=== PATIENT | male | born 1965 | race American Indian/Alaskan Native ===

== ENCOUNTER 2020-05-11 06:32 | Emergency (ER) | payer OTHER ==
--- NOTE | 2020-05-11 07:23 | EDM.PDOC ---
ED [facility] GENERAL MEDICAL PROBLEM - General Chief Complaint: Genitourinary Problem Stated Complaint: DISCHARGE IN URINE Time Seen by Provider: 05/11/20 07:13 Source of Information: Reports: Patient History Limitations: Reports: No Limitations - History of Present Illness INITIAL COMMENTS - FREE TEXT/NARRATIVE: 54-year-old male presents with dysuria and greenish penile discharge for 1 week. He was sexually active with another person that has STDs. Patient denies fever, chills, headache, ocular pain, chest pain, shortness of breath, abdominal pain, focal numbness or weakness. ROS: A 10-point review of systems, other than pertinent positives and negatives as stated per HPI, is otherwise negative Past medical history: No additional pertinent history Past Surgical history: No additional pertinent history Social history: No additional pertinent history Family history: No additional pertinent history PHYSICAL EXAM General: AOx4, GCS = 15, No distress HEENT: dry mucous membrane Neck: supple, no meningismus, no Kernig or Brudzinski Cardiac: S1S2 RRR Respiratory: CTAB, no crackles or rales, no wheezing Abdomen: Soft, nontender, no rebound or guarding, nondistended, no pulsatile mass. : Deferred Back: nontender Musculoskeletal: NVI distally, no deformity Neuro: No focal deficits, CN 2 - 12 WNL. - Related Data Allergies Allergy/AdvReac Type Severity Reaction Status Date / Time No Known Allergies Allergy Verified 05/11/20 06:52 Home Meds: Home Meds Doxycycline Monohydrate 100 mg PO BID 10 Days #20 capsule 05/11/20 [Rx] Past Medical History - Past Health History Medical/Surgical History: Denies Medical/Surgical History - Infectious Disease History Infectious Disease History: Reports: Novel Coronavirus Social & Family History - Family History Family Medical History: No Pertinent Family History - Tobacco Use Tobacco Use Status *Q: Never Tobacco User - Caffeine Use Caffeine Use: Reports: None - Recreational Drug Use Recreational Drug Use: Yes Recreational Drug Type: Reports: Marijuana/Hashish Recreational Drug Use Frequency: Weekly ED ROS GENERAL - Review of Systems Review Of Systems: See Below (see dictation) ED EXAM, GENERAL - Physical Exam Exam: See Below (see dictation) Course - Vital Signs Last Recorded V/S: Last Vital Signs Temp 96.7 F L 05/11/20 06:52 Pulse 60 05/11/20 06:52 Resp 18 05/11/20 06:52 BP 145/91 H 05/11/20 06:52 Pulse Ox 94 L 05/11/20 06:52 - Orders/Labs/Meds Orders: Active Orders 24 hr Category Date Time Status CHLAMYDIA AND GONORRHEA BY TMA Stat Lab 05/11/20 07:14 Ordered URINALYSIS W/MICROSCOPIC [UA W/MICROSCOPIC] [URIN] Stat Lab 05/11/20 07:14 Ordered - Re-Assessments/Exams Free Text/Narrative Re-Assessment/Exam: 05/11/20 07:23 After IM Rocephin 500 mg in the ER, he is currently stable for discharge. I performed a repeat exam and did not appreciate new abnormal findings. Patient exhibits normal vital signs and has a normal gait on road test. I advised the patient to return to the ER for reevaluation if symptoms worsened, including fever, worsening pain, or any other worrisome symptoms. I instructed the patient to follow up with their PCP within 2-3 days. MEDICAL DECISION MAKING: I reviewed the patients past medical records, lab and radiographic findings. I discussed the case with the patient. My differential diagnosis included: Gonorrhea, chlamydia, urethritis, UTI Departure - Departure Time of Disposition: 07:23 Disposition: Home, Self-Care 01 Condition: Good Clinical Impression: Urethritis - Discharge Information *PRESCRIPTION DRUG MONITORING PROGRAM REVIEWED*: Not Applicable *COPY OF PRESCRIPTION DRUG MONITORING REPORT IN PATIENT MARLEEN: Not Applicable Prescriptions: Doxycycline Monohydrate 100 mg PO BID 10 Days #20 capsule Instructions: Sexually Transmitted Disease, [id number] Referrals: Shelby Gutierrez MD [Primary Care Provider] - 1 Week Additional Instructions: The need for follow-up, as well as the timing and circumstances, are variable depending upon the specifics of your emergency department visit. If you don't have a primary care physician on staff, we will provide you with a referral. We always advise you to contact your personal physician following an emergency department visit to inform them of the circumstance of the visit and for follow-up with them and/or the need for any referrals to a consulting spe cialist. The emergency department will also refer you to a specialist when appropriate. This referral assures that you have the opportunity for follow-up care with a specialist. All of these measure are taken in an effort to provide you with optimal care, which includes your follow-up. Under all circumstances we always encourage you to contact your private physician who remains a resource for coordinating your care. When calling for follow-up care, please make the office aware that this follow-up is from your recent emergency room visit. If for any reason you are refused follow-up, please contact the [facility] Emergency Department at and asked to speak to the emergency department charge nurse. If you do not have a primary care doctor, please follow up with the clinics below within 3-5 days. [facility] - Primary Care [address] [place] [address] [id number] [address] [id number] Sepsis Event Note (ED) - Evaluation Sepsis Screening Result: No Definite Risk - Focused Exam Vital Signs: Vital Signs Temp Pulse Resp BP Pulse Ox 05/11/20 06:52 96.7 F L 60 18 145/91 H 94 L - My Orders Last 24 Hours: My Active Orders 05/11/20 07:14 CHLAMYDIA AND GONORRHEA BY TMA Stat URINALYSIS W/MICROSCOPIC [UA W/MICROSCOPIC] [URIN] Stat - Assessment/Plan Last 24 Hours: My Active Orders 05/11/20 07:14 CHLAMYDIA AND GONORRHEA BY TMA Stat URINALYSIS W/MICROSCOPIC [UA W/MICROSCOPIC] [URIN] Stat
[2020-05-11] MEDS ORDERED: cefTRIAXone 500 MG in Lidocaine 1% 1 ML IM ONE (07:24)
[2020-05-13 11:06] LABS: C.TRACHOMATIS BY TMA Negative (Negative); N.GONORRHOEAE BY TMA Positive (Negative)
== END 2020-05-11 07:55 | disposition home or self-care (01) ==
LOC: MW.ED 06:32
DX: N34.2 Other urethritis (principal)
CPT/HCPCS: 81001; 87491; 87591; 96372; 99283; J0696; J2001; 99282

== ENCOUNTER 2021-09-01 06:36 | Day surgery (SDC) | payer MEDICAID, OTHER ==
[~2021-09-01 06:36] MED LIST: Albuterol 0.083% 2.5 MG/3 ML Neb Soln NEB PRN; HYDROmorphone 1 MG/ML Syringe IVPUSH PRN; Lactated Ringers 1,000 ML IV SCH; Metoclopramide 10 MG/2 ML SDV IVPUSH PRN; Morphine 2 MG/ML SYRINGE IVPUSH PRN; Naloxone 0.4 MG/ML SDV IVPUSH PRN; Ondansetron 4 MG/2 ML SDV IVPUSH PRN; ceFAZolin 2 GM in Premix Bag 1 BAG IV SCH; fentaNYL 100 MCG/2 ML SDV IVPUSH PRN
[2021-09-01] MEDS ORDERED: Heparin Sodium 100 Units/ML 3 ML Syringe ONE ×2 (07:27→07:36)
[2021-09-01] MEDS ORDERED: Lidocaine 1% 20 ML MDV ONE (07:27)
[2021-09-01] MEDS ORDERED: Bupivacaine 0.5% 10 ML SDV ONE (07:27)
[2021-09-01] MEDS ORDERED: Iopamidol 408 MG/ML 20 ML SDV ONE (07:28)
[2021-09-01] MEDS ORDERED: Propofol 200 MG/20 ML SDV ONE ×2 (07:30→09:22)
[2021-09-01] MEDS ORDERED: fentaNYL 250 MCG/5 ML SDV ONE (07:30)
[2021-09-01] MEDS ORDERED: Lidocaine 1% 5 ML VIAL ONE (07:36)
[2021-09-01] MEDS ORDERED: Octyl 2-Cyanoacrylate 1 Tube ONE (07:37)
== END 2021-09-01 11:59 | disposition home or self-care (01) ==
LOC: MW.SDS 06:36
PROVIDERS: ATTEND Surgery
DX: C18.9 Malignant neoplasm of colon, unspecified (principal); I10 Essential (primary) hypertension
CPT/HCPCS: 36561; 71045; 76000; A9270; C1788; J1642; J2704; J3010; J3490; J7120; 00532; Q9966

== ENCOUNTER 2022-12-24 12:40 | Emergency (ER) | payer MEDICAID, OTHER ==
[2022-12-24] MEDS ORDERED: Sodium Chloride 0.9% 1,000 ML IV ONE (13:02)
[2022-12-24] MEDS ORDERED: Ondansetron 4 MG/2 ML SDV IVPUSH ONE (13:04)
[2022-12-24] MEDS ORDERED: Diphtheria,Pertussis(Acell),Tetanus Vaccine 0.5 ML Syringe IM ONE (13:13)
[2022-12-24] MEDS ORDERED: Bacitracin Oint 1 GM U/D Packet TOP ONE (13:15)
[2022-12-24 13:23] LABS: BASOPHILS PERCENT AUTO 0.1 % (0.0-1.5); EOSINOPHILS PERCENT AUTO 0.1 % (0.0-7.0); HEMATOCRIT 33.7 % (38.0-50.0); HEMOGLOBIN 11.2 g/dL (13.0-17.0); LYMPHOCYTES ABSOLUTE AUTO 0.9 K/uL (0.6-2.4); LYMPHOCYTES PERCENT AUTO 5.6 % (16.0-40.0); MEAN CORPUSCULAR HEMOGLOBIN 35.2 pg (27.0-32.0); MEAN CORPUSCULAR HGB CONC 33.2 g/dL (31.0-37.0); MONOCYTES ABSOLUTE AUTO 1.6 K/uL (0.0-0.8); MONOCYTES PERCENT AUTO 9.8 % (0.0-15.0); NEUTROPHILS ABSOLUTE AUTO 13.6 K/uL (1.4-5.7); NEUTROPHILS PERCENT AUTO 84.4 % (48.0-80.0); NRBC ABSOLUTE 0 K/uL; PLATELET COUNT,PLT 200 K/uL (150-400); RED BLOOD CELL COUNT 3.18 M/uL (4.50-5.90); WHITE BLOOD CELL COUNT,WBC 16.09 K/uL (4.0-11.0)
[2022-12-24 13:43] LABS: A/G RATIO 0.8 (0.9-1.6); ALBUMIN 2.9 g/dL (3.4-5.0); BILIRUBIN TOTAL 1.7 mg/dL (0.2-1.0); CALCIUM 8.4 mg/dL (8.5-10.1); CARBON DIOXIDE,CO2 22.5 mmol/L (21.0-32.0); CREATININE 0.9 mg/dL (0.8-1.3); EST CRCL DRUG DOSING (CG) 101.11 mL/min; POTASSIUM,K 3.4 mmol/L (3.5-5.1); PROTEIN TOTAL,TP 6.7 g/dL (6.4-8.2)
[2022-12-24 15:33] LABS: CORONAVIRUS COVID-19 NAA NEGATIVE (NEGATIVE); INFLUENZA A NAA NEGATIVE (NEGATIVE); INFLUENZA B NAA NEGATIVE (NEGATIVE)
== END 2022-12-24 15:45 | disposition home or self-care (01) ==
LOC: MW.ED 12:40
DX: J18.9 Pneumonia, unspecified organism (principal); R11.0 Nausea
CPT/HCPCS: 0240U; 36415; 71045; 80053; 83605; 83690; 85025; 87040; 90471; 90715; 93005; 96361; 96374; 99284; J1642; J2405; J7030; 93010

== ENCOUNTER 2022-12-26 09:10 | Emergency (ER) | payer MEDICAID, OTHER ==
[2022-12-26] MEDS ORDERED: Morphine 4 MG/ML Syringe IVPUSH ONE (09:18)
[2022-12-26 09:32] LABS: BASOPHILS PERCENT AUTO 0.1 % (0.0-1.5); EOSINOPHILS ABSOLUTE AUTO 0.1 K/uL (0.0-0.7); EOSINOPHILS PERCENT AUTO 0.3 % (0.0-7.0); HEMATOCRIT 34.3 % (38.0-50.0); HEMOGLOBIN 11.6 g/dL (13.0-17.0); LYMPHOCYTES ABSOLUTE AUTO 1.1 K/uL (0.6-2.4); LYMPHOCYTES PERCENT AUTO 7.5 % (16.0-40.0); MEAN CORPUSCULAR HEMOGLOBIN 35.7 pg (27.0-32.0); MEAN CORPUSCULAR HGB CONC 33.8 g/dL (31.0-37.0); MEAN CORPUSCULAR VOLUME 105.5 fL (80.0-98.0); MONOCYTES ABSOLUTE AUTO 1.8 K/uL (0.0-0.8); MONOCYTES PERCENT AUTO 12.5 % (0.0-15.0); NEUTROPHILS ABSOLUTE AUTO 11.7 K/uL (1.4-5.7); NEUTROPHILS PERCENT AUTO 79.6 % (48.0-80.0); NRBC ABSOLUTE 0 K/uL; PLATELET COUNT,PLT 235 K/uL (150-400); RED BLOOD CELL COUNT 3.25 M/uL (4.50-5.90); WHITE BLOOD CELL COUNT,WBC 14.75 K/uL (4.0-11.0)
[2022-12-26 09:57] LABS: INR 1.66 (0.86-1.11)
[2022-12-26 10:13] LABS: A/G RATIO 0.7 (0.9-1.6); ALANINE AMINOTRANSFERASE,ALT 16 IU/L (14-63); ALBUMIN 2.7 g/dL (3.4-5.0); ALKALINE PHOSPHATASE 83 U/L (46-116); ASPARTATE AMNIOTRANSFERASE,AST 18 IU/L (15-37); BILIRUBIN TOTAL 1.4 mg/dL (0.2-1.0); BLOOD UREA NITROGEN,BUN 10 mg/dL (7.0-18.0); CALCIUM 8.4 mg/dL (8.5-10.1); CARBON DIOXIDE,CO2 22.3 mmol/L (21.0-32.0); CHLORIDE,CL 101 mmol/L (98-107); CREATININE 0.8 mg/dL (0.8-1.3); EST CRCL DRUG DOSING (CG) 112.36 mL/min; ESTIMATED GFR 102 mL/min (>60); ETHANOL BLOOD MEDICAL < 3.0 mg/dL; GLUCOSE RANDOM 116 mg/dL (74-106); LIPASE 16 U/L (16-77); MAGNESIUM 1.6 mg/dL (1.8-2.4); POTASSIUM,K 3.3 mmol/L (3.5-5.1); PROTEIN TOTAL,TP 6.4 g/dL (6.4-8.2); SODIUM,NA 136 mmol/L (136-148)
[2022-12-26] MEDS ORDERED: Magnesium Sulfate/Water 2 GM in Premix Bag 1 BAG IV ONE (12:20)
[2022-12-26] MEDS ORDERED: Potassium Chloride 20 MEQ Tab.ER PO ONE (12:21)
[2022-12-26] MEDS ORDERED: Iopamidol 755 MG/ML 500 ML Multipack Bottle IVPUSH STA (13:01)
[2022-12-26] MEDS ORDERED: Heparin Sodium 100 Units/ML 3 ML Syringe ONE (15:54)
[2022-12-26] MEDS ORDERED: Heparin Sodium 100 Units/ML 3 ML Syringe FLUSH PRN (16:01)
== END 2022-12-26 16:05 | disposition home or self-care (01) ==
LOC: MW.ED 09:10
DX: J18.9 Pneumonia, unspecified organism (principal); Z86.16 Personal history of COVID-19
CPT/HCPCS: 36415; 71045; 71275; 80053; 80307; 83690; 83735; 83880; 84484; 85025; 85610; 86850; 86900; 86901; 93005; 96365; 96366; 96375; 99285; A9270; J1642; J2270; J3475; Q9967; 93010; 99284

== ENCOUNTER 2024-09-04 09:00 | Emergency (ER) | payer MEDICAID ==
[2024-09-04] MEDS: Sodium Chloride 0.9% 1,000 ML IV STA (09:11)
[2024-09-04] MEDS: Sodium Chloride 0.9% 2.5 ML Syringe FLUSH PRN (09:14)
[2024-09-04] MEDS: Sodium Chloride 0.9% 10 ML Syringe FLUSH PRN (09:14)
[2024-09-04 09:24] LABS: BASOPHILS ABSOLUTE AUTO 0.02 K/uL (0.00-0.20); BASOPHILS PERCENT AUTO 0.2 % (0.0-1.0); EOSINOPHILS ABSOLUTE AUTO 0.02 K/uL (0.00-0.45); EOSINOPHILS PERCENT AUTO 0.2 % (0.0-6.0); HEMATOCRIT 42.7 % (42.0-52.0); HEMOGLOBIN 14.2 g/dL (14.0-18.0); IMMATURE GRAN ABSOLUTE AUTO 0.07 K/uL (0.00-0.05); IMMATURE GRAN PERCENT AUTO 0.6 % (0.0-0.4); LYMPHOCYTES ABSOLUTE AUTO 0.28 K/uL (1.00-4.80); LYMPHOCYTES PERCENT AUTO 2.3 % (24.0-44.0); MEAN CORPUSCULAR HEMOGLOBIN 30.6 pg (28.0-32.0); MEAN CORPUSCULAR HGB CONC 33.3 g/dL (32.0-36.0); MEAN PLATELET VOLUME 9.5 fL (9.4-12.4); MONOCYTES ABSOLUTE AUTO 0.63 K/uL (0.00-0.80); MONOCYTES PERCENT AUTO 5.2 % (0.0-8.0); NEUTROPHILS ABSOLUTE AUTO 11.07 K/uL (1.80-7.70); NEUTROPHILS PERCENT AUTO 91.5 % (41.0-71.0); PLATELET COUNT,PLT 146 K/uL (150-400); RED BLOOD CELL COUNT 4.64 M/uL (4.52-5.90); WHITE BLOOD CELL COUNT,WBC 12.09 K/uL (3.9-11.3)
[2024-09-04] MEDS: Ondansetron 4 MG/2 ML SDV IVPUSH ONE (09:27)
[2024-09-04 09:40] LABS: A/G RATIO 0.9 (0.9-1.6); ALBUMIN 3.8 g/dL (3.4-5.0); BILIRUBIN TOTAL 2.3 mg/dL (0.2-1.0); CALCIUM 9.7 mg/dL (8.5-10.1); CARBON DIOXIDE,CO2 22.6 mmol/L (21.0-32.0); CREATININE 1.3 mg/dL (0.8-1.3); EST CRCL DRUG DOSING (CG) 62.39 mL/min; PROTEIN TOTAL,TP 8.2 g/dL (6.4-8.2)
[2024-09-04 10:21] LABS: CREATINE KINASE,CK 119 U/L (26-308); ETHANOL BLOOD MEDICAL <3 mg/dL; LIPASE 22 U/L (16-77); PRO B-TYPE NATRIUR PEPT,BNPPRO 73 pg/mL (0-125)
[2024-09-04] MEDS: Iopamidol 755 MG/ML 500 ML Multipack Bottle IVPUSH STA (10:25)
[2024-09-04 10:44] LABS: INR 1.09 (0.86-1.11)
[2024-09-04 10:48] LABS: PH,VENOUS 7.4 (7.32-7.43)
[2024-09-04 11:32] LABS: APPEARANCE,URINE CLEAR; BILIRUBIN,URINE NEGATIVE (NEGATIVE); COLOR,URINE YELLOW; GLUCOSE,URINE NEGATIVE (NEGATIVE); KETONES,URINE NEGATIVE (NEGATIVE); LEUKOCYTE ESTERASE,URINE NEGATIVE (NEGATIVE); NITRITE,URINE NEGATIVE (NEGATIVE); OCCULT BLOOD,URINE LARGE (NEGATIVE); PH,URINE 6.5 (5.0-8.0); PROTEIN,URINE 100 mg/dL (NEGATIVE); UROBILINOGEN,URINE 0.2 EU/dL (<2.0)
[2024-09-04 12:48] LABS: BACTERIA,URINE RARE (NEGATIVE); EPITHELIAL CELLS,URINE RARE (NONE-FEW); WBC,URINE 0-3 (0-5/HPF)
== END 2024-09-04 11:50 | disposition home or self-care (01) ==
LOC: MW.ED 09:00
DX: T67.9XXA Effect of heat and light, unspecified, initial encounter (principal); R11.2 Nausea with vomiting, unspecified; R53.1 Weakness; R42 Dizziness and giddiness; I49.3 Ventricular premature depolarization; N28.1 Cyst of kidney, acquired; Z85.118 Personal history of other malignant neoplasm of bronchus and lung; Z85.9 Personal history of malignant neoplasm, unspecified
CPT/HCPCS: 36415; 71275; 74177; 80053; 80307; 81001; 82550; 82803; 83605; 83690; 83880; 84484; 85025; 85610; 93005; 96361; 96374; 99284; J2405; J7030; Q9967; 93010; 99285

== ENCOUNTER 2024-09-07 12:10 | Emergency (ER) | payer MEDICAID ==
[2024-09-07] MEDS: Ondansetron 4 MG/2 ML SDV IVPUSH ONE (12:24)
[2024-09-07] MEDS: Metoprolol Tartrate 5 MG/5 ML SDV IVPUSH ONE ×3 (12:24→13:37)
[2024-09-07] MEDS: Sodium Chloride 0.9% 1,000 ML IV ONE (12:25)
[2024-09-07 12:27] LABS: BASOPHILS ABSOLUTE AUTO 0.02 K/uL (0.00-0.20); BASOPHILS PERCENT AUTO 0.2 % (0.0-1.0); EOSINOPHILS ABSOLUTE AUTO 0.03 K/uL (0.00-0.45); EOSINOPHILS PERCENT AUTO 0.2 % (0.0-6.0); HEMATOCRIT 36.8 % (42.0-52.0); HEMOGLOBIN 12.9 g/dL (14.0-18.0); IMMATURE GRAN ABSOLUTE AUTO 0.08 K/uL (0.00-0.05); IMMATURE GRAN PERCENT AUTO 0.6 % (0.0-0.4); LYMPHOCYTES ABSOLUTE AUTO 0.26 K/uL (1.00-4.80); MEAN CORPUSCULAR HGB CONC 35.1 g/dL (32.0-36.0); MEAN CORPUSCULAR VOLUME 88.5 fL (83.0-99.0); MEAN PLATELET VOLUME 9.3 fL (9.4-12.4); MONOCYTES ABSOLUTE AUTO 0.73 K/uL (0.00-0.80); MONOCYTES PERCENT AUTO 5.6 % (0.0-8.0); NEUTROPHILS ABSOLUTE AUTO 11.88 K/uL (1.80-7.70); NEUTROPHILS PERCENT AUTO 91.4 % (41.0-71.0); PLATELET COUNT,PLT 180 K/uL (150-400); RED BLOOD CELL COUNT 4.16 M/uL (4.52-5.90)
[2024-09-07 12:47] LABS: INR 1.01 (0.86-1.11)
[2024-09-07] MEDS: Metoprolol Succinate 25 MG Tab.ER PO ONE (12:47)
[2024-09-07 13:07] LABS: A/G RATIO 0.7 (0.9-1.6); ALANINE AMINOTRANSFERASE,ALT 97 IU/L (14-63); ALBUMIN 2.8 g/dL (3.4-5.0); ALKALINE PHOSPHATASE 109 U/L (46-116); ASPARTATE AMNIOTRANSFERASE,AST 60 IU/L (15-37); BILIRUBIN TOTAL 1.4 mg/dL (0.2-1.0); BLOOD UREA NITROGEN,BUN 24 mg/dL (7.0-18.0); CALCIUM 8.8 mg/dL (8.5-10.1); CHLORIDE,CL 99 mmol/L (98-107); CREATININE 1.2 mg/dL (0.8-1.3); EST CRCL DRUG DOSING (CG) 69.72 mL/min; ETHANOL BLOOD MEDICAL <3 mg/dL; GLUCOSE RANDOM 119 mg/dL (74-106); LIPASE 20 U/L (16-77); MAGNESIUM 1.6 mg/dL (1.8-2.4); POTASSIUM,K 3.4 mmol/L (3.5-5.1); PRO B-TYPE NATRIUR PEPT,BNPPRO 901 pg/mL (0-125); PROTEIN TOTAL,TP 6.7 g/dL (6.4-8.2); SODIUM,NA 130 mmol/L (136-148)
[2024-09-07 13:15] LABS: ESTIMATED GFR 69 mL/min (>60)
[2024-09-07] MEDS: Magnesium Sulfate 2 GM/50 mL 2 GM in Premix Bag 1 BAG IV ONE (13:37)
[2024-09-07] MEDS: droPERidol 2.5 MG/ML SDV IVPUSH ONE (14:02)
[2024-09-07] MEDS: Diltiazem 25 MG/5 ML SDV IVPUSH ONE ×2 (15:00→16:24)
[2024-09-07] MEDS: Diltiazem 100 MG in Sodium Chloride 0.9% 100 ML IV SCH (16:48)
== END 2024-09-07 18:27 ==
LOC: MW.ED 12:10
DX: I48.91 Unspecified atrial fibrillation (principal); R11.2 Nausea with vomiting, unspecified; R53.1 Weakness; Z79.899 Other long term (current) drug therapy
CPT/HCPCS: 36415; 71045; 80053; 80307; 83605; 83690; 83735; 83880; 84484; 85025; 85610; 93005; 96361; 96365; 96366; 96367; 96375; 96376; 99285; A9270; J2405; J3475; J3490; J7030; 93010